=== PATIENT | female | born 1975 | race Caucasian/White ===

== ENCOUNTER 2018-01-02 10:25 | Emergency (ER) | payer OTHER, MEDICAID ==
[~2018-01-02] VITALS: Ht 152.4 cm; Wt 86.2 kg
[~2018-01-02 10:25] MED LIST: ABILIFY 5 MG TAB5 MG; AMBIEN 10 MG TA10 MG PO; AMOXICILLIN 50500 MG PO; FLEXERIL PO; LEVOTHYROXIN0.175 MG PO; MEDROLDOSEPACK PO; NAPROSYN500 MG PO; NORCO 5-325 TA1 EACH PO; NYSTATIN15 G3 TOP; ROBAXIN 750 MG750 MG PO; TRAMADOL 50 MG50 MG PO; ZOLOFT100 MG PO
[2018-01-02] MEDS ORDERED: GEODON20 MG PO (10:35)
[2018-01-02 11:22] LABS: INFLUENZA A ANTIGEN None Detected (None Detect); INFLUENZA B ANTIGEN None Detected (None Detect)
[2018-01-02] MEDS ORDERED: ZPAK PO (11:54)
[2018-01-02] MEDS ORDERED: TESSALON PERLE100 M1 PO (11:54)
[2018-01-02] MEDS ORDERED: MEDROLDOSEPACK PO (11:54)
[2018-01-02 12:04] VITALS: BP 130/76
== END 2018-01-02 12:06 | disposition home or self-care (01) ==
LOC: M.ERS 10:25
PROVIDERS: Nurse Practitioner Family
DX: J20.9 Acute bronchitis, unspecified (principal); F31.9 Bipolar disorder, unspecified

== ENCOUNTER 2018-02-02 20:57 | Emergency (ER) | payer OTHER, MEDICAID ==
[~2018-02-02] VITALS: Ht 152.4 cm; Wt 90.7 kg
[~2018-02-02 20:57] MED LIST changes: +GEODON20 MG PO; +TESSALON PERLE100 M1 PO; +ZPAK PO
[2018-02-02 21:15] LABS: ABSOLUTE BASOPHILS 0.1 thou/uL (0.0-0.2); ABSOLUTE EOSINOPHILS 0.1 thou/uL (0.0-0.7); ABSOLUTE LYMPHOCYTES 2.5 thou/uL (0.8-5.3); ABSOLUTE MONOCYTES 0.4 thou/uL (0.0-1.2); ABSOLUTE NEUTROPHILS 5.7 thou/uL (1.6-8.1); BASOPHILS 0.7 %; EOSINOPHILS 0.7 %; HEMATOCRIT 27.8 % (37.0-47.0); HEMOGLOBIN 8.5 gm/dL (12.0-15.0); LYMPHOCYTES 28.9 %; MCH 19.7 pg (26.0-34.0); MCHC 30.7 g/dL (28.0-37.0); MCV 64.2 fL (80.0-100.0); MONOCYTES 5.1 %; MPV 8.3 fl. (7.2-11.1); NUCLEATED RBCS 0 /100WBC; PLATELET COUNT* 199 thou/uL (150-400); POLYS 64.6 %; RBC 4.33 mil/uL (4.20-5.00); RDW-CV 18.6 % (10.5-14.5); WBC 8.8 thou/uL (4.0-11.0)
[2018-02-02 21:16] LABS: URINE BILIRUBIN NEGATIVE (Negative); URINE BLOOD 2+ (Negative); URINE CLARITY CLEAR; URINE COLOR YELLOW; URINE GLUCOSE-RANDOM NEGATIVE (Negative); URINE KETONES NEGATIVE (Negative); URINE LEUKOCYTES NEGATIVE (Negative); URINE NITRITE NEGATIVE (Negative); URINE PROTEIN NEGATIVE (Negative); URINE SPECIFIC GRAVITY 1.015 (1.005-1.030); URINE UROBILINOGEN 0.2 E.U./dl (0.2-1.0)
[2018-02-02 21:23] LABS: CALCIUM 8.9 mg/dL (8.5-10.1); CREATININE 0.9 mg/dL (0.6-1.3); POTASSIUM 3.6 mmol/L (3.5-5.1)
[2018-02-02 21:28] LABS: ALBUMIN 3.5 g/dL (3.4-5.0); TOTAL BILIRUBIN 0.3 mg/dL (<0.1-1.0); TOTAL PROTEIN 7.2 g/dL (6.4-8.2)
[2018-02-02 22:05] LABS: ANISOCYTOSIS 1+; HYPOCHROMASIA 3+; MACROCYTES 3+; PLATELET ESTIMATE ADEQUATE; POLYCHROMASIA 1+
[2018-02-02 22:07] LABS: CASTS None Seen /LPF (None Seen); SQUAMOUS >10 Many /LPF (0-3)
[2018-02-02 22:08] LABS: CRYSTALS None Seen /LPF (None Seen); URINE RBC 3-10 Few /HPF (0-2); URINE WBC None Seen /HPF (0-5)
[2018-02-03 00:46] VITALS: BP 109/64
[2018-02-03] MEDS ORDERED: BENTYL 20 MG TA20 M1 PO (14:20)
[2018-02-03] MEDS ORDERED: ZOFRAN4 MG PO (14:20)
== END 2018-02-03 00:48 | disposition home or self-care (01) ==
LOC: M.ERS 20:57
PROVIDERS: Physician Assistant
DX: R11.2 Nausea with vomiting, unspecified (principal); R19.7 Diarrhea, unspecified; D72.829 Elevated white blood cell count, unspecified; R10.9 Unspecified abdominal pain; F31.9 Bipolar disorder, unspecified

== ENCOUNTER 2018-02-03 13:01 | Emergency (ER) | payer OTHER, MEDICAID ==
[~2018-02-03] VITALS: Ht 152.4 cm; Wt 90.7 kg
[2018-02-03 13:33] LABS: ABSOLUTE BASOPHILS 0.1 thou/uL (0.0-0.2); ABSOLUTE LYMPHOCYTES 1.3 thou/uL (0.8-5.3); ABSOLUTE MONOCYTES 0.3 thou/uL (0.0-1.2); ABSOLUTE NEUTROPHILS 4.5 thou/uL (1.6-8.1); BASOPHILS 0.9 %; EOSINOPHILS 0.6 %; HEMATOCRIT 26.6 % (37.0-47.0); HEMOGLOBIN 8.2 gm/dL (12.0-15.0); LYMPHOCYTES 21.1 %; MCH 19.6 pg (26.0-34.0); MCHC 30.8 g/dL (28.0-37.0); MCV 63.7 fL (80.0-100.0); MONOCYTES 4.5 %; MPV 8.4 fl. (7.2-11.1); NUCLEATED RBCS 0 /100WBC; PLATELET COUNT* 190 thou/uL (150-400); POLYS 72.9 %; RBC 4.17 mil/uL (4.20-5.00); RDW-CV 18.6 % (10.5-14.5); WBC 6.2 thou/uL (4.0-11.0)
[2018-02-03 13:42] LABS: CALCIUM 8.6 mg/dL (8.5-10.1); CREATININE 0.9 mg/dL (0.6-1.3); POTASSIUM 3.6 mmol/L (3.5-5.1)
[2018-02-03 13:45] LABS: ALBUMIN 3.3 g/dL (3.4-5.0); TOTAL BILIRUBIN 0.3 mg/dL (<0.1-1.0)
[2018-02-03 14:10] LABS: URINE BILIRUBIN NEGATIVE (Negative); URINE BLOOD 1+ (Negative); URINE CLARITY HAZY; URINE COLOR YELLOW; URINE GLUCOSE-RANDOM NEGATIVE (Negative); URINE KETONES NEGATIVE (Negative); URINE LEUKOCYTES-REFLEX NEGATIVE (Negative); URINE NITRITE-REFLEX NEGATIVE (Negative); URINE PROTEIN NEGATIVE (Negative); URINE UROBILINOGEN 0.2 E.U./dl (0.2-1.0)
[2018-02-03] MEDS ORDERED: ZOFRAN4 MG PO (14:20)
[2018-02-03] MEDS ORDERED: BENTYL 20 MG TA20 M1 PO (14:20)
[2018-02-03 14:22] LABS: SQUAMOUS >10 Many /LPF (0-3)
[2018-02-03 14:23] LABS: BACTERIA-REFLEX >30 Many /HPF (None Seen)
[2018-02-03 14:24] LABS: CASTS None Seen /LPF (None Seen); CRYSTALS None Seen /LPF (None Seen); URINE RBC 0-2 Rare /HPF (0-2); URINE WBC-REFLEX 0-5 Rare /HPF (0-5)
[2018-02-03 14:27] VITALS: BP 118/67
[2018-02-03 14:30] LABS: ANISOCYTOSIS 1+; MICROCYTES 3+; PLATELET ESTIMATE ADEQUATE
[2018-02-03 14:31] LABS: HYPOCHROMASIA 2+
== END 2018-02-03 14:28 | disposition home or self-care (01) ==
LOC: M.ERS 13:01
PROVIDERS: Nurse Practitioner Family
DX: K52.9 Noninfective gastroenteritis and colitis, unspecified (principal); F31.9 Bipolar disorder, unspecified